=== PATIENT | male | born 1995 | race Caucasian/White ===

== ENCOUNTER 2019-06-18 17:44 | Emergency (ER) | payer OTHER, SELFPAY ==
[2019-06-18 17:45] VITALS: BP 90/49; PULSE 70; RESP 18; TEMP 36.1; O2SAT 98; BMI 35.9
[2019-06-18] MEDS: Diphth,Pertuss(Acell),Tet Vac 0.5 ML Vial IM (18:12)
[2019-06-18] MEDS: BACITRACIN 15 GM Tube 1 APPLIC TOPICAL (18:13)
[2019-06-18] MEDS: HYDROmorphone 1 MG/ML Syringe SC (18:13)
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
[2019-06-18 18:45] VITALS: BP 119/75; PULSE 81; RESP 16; O2SAT 99
--- NOTE | 2019-06-18 18:45 | ED.RN ---
THIS NURSE REVIEWED D/C INSTRUCTIONS WITH PT. PT VERBALIZED UNDERSTANDING OF INSTRUCTIONS. PT DENIES FURTHER NEEDS OR QUESTIONS AT THIS TIME. PT AMBULATES FROM ROOM ON OWN WITHOUT ASSISTANCE FROM STAFF
== END 2019-06-18 18:46 | disposition home or self-care (01) ==
LOC: ED 18:18
PROVIDERS: Emergency Provider Emergency Medicine; PCP Family Medicine
DX: T23.201A Burn of second degree of right hand, unspecified site, initial encounter (principal); X08.8XXA Exposure to other specified smoke, fire and flames, initial encounter; Y92.9 Unspecified place or not applicable; Y99.9 Unspecified external cause status; Z23 Encounter for immunization
CPT/HCPCS: 90471; 90715; 96372; 99283

== ENCOUNTER 2020-01-05 17:48 | Emergency (ER) | payer OTHER, SELFPAY ==
[2020-01-05 17:48] VITALS: BP 129/71; PULSE 88; RESP 16; TEMP 37.1; O2SAT 99; BMI 37.3
--- NOTE | 2020-01-05 19:06 | RAD_ITS ---
STUDY: X-RAY - LUMBAR SPINE REASON FOR EXAM: Male, 24 years old. Back pain for 3 days. No known injury. TECHNIQUE: 3 view(s) of the lumbar spine were obtained. COMPARISON: None FINDINGS: Normal lumbar lordosis. There is no substantial scoliosis. There is a normal alignment of the vertebrae. Normal vertebral bodies and endplates. Normal disc space heights. The soft tissue structures are unremarkable. RAD/Lumbar Spine 2 or 3 Views IMPRESSION: No fracture or subluxation. Electronically Signed: Bolivar Carter DO at 19:44 EDT Tel [phone], Service support ,
[2020-01-05] MEDS: Naproxen 500 MG Tablet PO (19:15)
--- NOTE | 2020-01-05 19:23 | ED.VISSUMM ---
- ER Visit Summary Date of Service: 01/05/20 Chief Complaint: Back pain History of Present Illness: The patient is a 24 M who presents with back pain that is being gradually getting worse over the last 4 days. Patient states the pain has been constant. Patient describes the pain is constant aching but sharp at times. Patient states the pain is over the lower lumbar area and radiates down both lower extremities. Patient admits to some tingling in his feet bilaterally. Patient states the pain is worse with sitting. Patient takes nothing seems to help with the pain. Patient denies any bowel or bladder changes. Patient denies any saddle anesthesia. Patient denies any direct trauma or injury. Patient states he went to a chiropractor a few days ago which initially helped. Patient states he went to the chiropractor again today and his pain became worse after that. Physical Examination: Vital signs are stable. Patient is afebrile. Patient is in no acute distress. Musculoskeletal exam reveals tenderness over the lower lumbar spine and paraspinal muscles bilaterally but worse on the right. There is no edema or ecchymosis. There is no bony crepitance or step-off. Range of motion was limited in all motions of the lumbar spine secondary to pain. Strength is 5/5 bilateral in the lower extremities. There are no sensory deficits noted. Deep tendon reflexes are 2+/4 bilateral in the lower extremities. Test Results: X-rays of the lumbar spine were obtained. There is no acute fracture or spondylolisthesis noted. These were interpreted by the radiologist and reviewed by myself. Emergency Department Course and Treatment: Patient was given a dose of Naprosyn and Flexeril here. Patient was given prescriptions for the same. Patient was instructed to use ice to the area. Patient was instructed to follow-up with his primary care physician in 5 to 7 days. Patient understood and was agreeable with the plan. All questions were answered. Disposition: Discharge home Impression: Lumbosacral strain This note was generated with [employer] dictation software. It may contain incorrect words, spelling, and punctuation that were not noted in review of the chart prior to signing ED Disposition - Plan for ED Patient: Disposition: Home or Assisted Living Diagnosis: Lumbosacral strain Instructions: ED LUMBAR SPRAIN/STRAIN Prescriptions: cycloBENZAPRine HCl [Flexeril] 10 mg PO QHS PRN PRN #20 tab PRN Reason: Muscle Spasm Prescription Printed Naproxen [Naprosyn] 500 mg PO BID PRN #20 tab Prescription Printed Referrals: Isiah Short MD [Primary Care Provider] - 3-5 Days
[2020-01-05] MEDS: cycloBENZAPRine HCl 10 MG Tablet PO (20:59)
[2020-01-05 21:00] VITALS: RESP 18
== END 2020-01-05 21:00 | disposition home or self-care (01) ==
PROVIDERS: Emergency Provider Emergency Medicine; PCP Family Medicine
DX: S39.012A Strain of muscle, fascia and tendon of lower back, initial encounter (principal); X58.XXXA Exposure to other specified factors, initial encounter; F17.220 Nicotine dependence, chewing tobacco, uncomplicated
CPT/HCPCS: 72100; 99283

== ENCOUNTER 2020-03-22 20:49 | Emergency (ER) | payer OTHER, SELFPAY ==
[2020-03-22 20:50] VITALS: BP 108/74; PULSE 72; RESP 18; TEMP 35.6; O2SAT 97; BMI 35.9
--- NOTE | 2020-04-13 08:53 | ED.VIS.GEN ---
History of Present Illness Chief Complaint: Foreign Body Informant: Patient Narrative: 24-year-old male presenting for foreign body sensation in his throat. This is a new issue for him. He states he has been able to tolerate his own secretions. He is able to eat and drink but does feel irritation. He does not have any shortness of breath or trouble breathing. No history of trauma. Past Medical History - Allergies and Home Meds Allergies/Adverse Reactions: Allergies No Known Allergies Allergy (Verified 03/22/20 20:51) Primary Care Physician: Isiah Short MD [Primary Care Provider] - Prior records reviewed: Yes Past Medical History: None Surgical History: noncontributory Lives: Spouse/ Significant Other Smoking Status: Former smoker Alcohol: None Drugs: None Review of Systems General: Denies: Chills, Fever, Sweats Eyes: Denies: Visual changes - bilaterally, Diplopia ENT: Reports: Sore throat - With foreign body sensation. Denies: Rhinorrhea Cardiovascular: Denies: Chest pain, Palpitations Respiratory: Denies: Dyspnea, Cough, Dyspnea on exertion Gastrointestinal: Denies: Abdominal pain, Nausea Genitourinary: Denies: Dysuria, Hematuria Musculoskeletal: Denies: Myalgias, Arthralgias Skin: Denies: Rash, Abscess Neurological: Denies: Headache, Parasthesia, Numbness Psych: Denies: Depression, Anxiety Physical Exam General: Well nourished, No Acute Distress Head: Normocephalic, Atraumatic Eyes: Perrl, EOMI ENT: Moist mucous membranes, - - Oropharynx is patent without stridor. [place] mucosa shows no abnormalities. Tongue and sublingual area are without swelling.. Negative for: Nasal congestion Cardiovascular: Regular rate, Regular rhythm Respiratory: No distress, CTA bilaterally Skin: Normal color, No rash. Negative for: Cyanosis, Diaphoresis Neurological: Alert, Oriented x3 Psychological: Normal affect, Normal Mood Diagnostic/Tx/Re-eval - Medical Decision Making 24-year-old male presenting with foreign body sensation in his esophagus. He is able to tolerate his own secretions and is able to tolerate fluids. His oropharynx is patent without stridor. There is no crepitance. Patient's vital signs are stable and he is afebrile. Given patient's ability to tolerate p.o. I do not believe he needs emergent endoscopy. Patient counseled on signs and symptoms to return. Impression: 1. Globus hystericus ED Disposition - Plan for ED Patient: Disposition: Home or Assisted Living Instructions: ED Esophageal Foreign Body, Resolved Referrals: Isiah Short MD [Primary Care Provider] -
== END 2020-03-22 21:42 | disposition home or self-care (01) ==
LOC: ED 21:38
PROVIDERS: Emergency Provider Student in an Organized Health Care Education/Training Program; PCP Family Medicine
DX: F45.8 Other somatoform disorders (principal); Z87.891 Personal history of nicotine dependence
CPT/HCPCS: 99282

== ENCOUNTER 2020-03-28 18:37 | Emergency (ER) | payer OTHER, SELFPAY ==
[2020-03-28 18:38] VITALS: BP 121/81; PULSE 81; RESP 17; TEMP 36.3; O2SAT 97; BMI 39.9
--- NOTE | 2020-03-28 19:02 | CT_ITS ---
STUDY: CT CHEST WITH CONTRAST REASON FOR EXAM: Male, 24 years old. CHEST PAIN,CHICKEN STUCK IN THROAT, DRANK WATER TO FORCE IT DOWN AND IS NOW COUGHING UP BLOOD RADIATION DOSAGE (If Supplied By Facility): CTDIvol = ( 20.05 ) mGy, DLP = ( 724.91 ) mGycm TECHNIQUE: Transaxial imaging was performed following intravenous administration of IV 100mL Isovue-370. Individualized dose optimization techniques were used for this CT. COMPARISON: Chest x-ray 07/26/2012. Esophagram 05/08/2010. FINDINGS: 9 mm luminal soft tissue density distal esophagus and local air-fluid level. The lungs are normal. There is no demonstrated pleural abnormality. Normal heart and pericardium. Normal mediastinum. Normal hilar regions. Normal enhanced pulmonary arteries. Normal aorta arch and descending thoracic aorta. Normal osseous structures. There is no demonstrated abnormality of the visualized upper abdomen. CT/Chest WITH Contrast IMPRESSION: Soft tissue density distal esophagus may represent a polyp or impacted food bolus. Otherwise negative CT chest. Electronically Signed: Girish Elliott MD at 20:05 EST , Service support ,
[2020-03-28] MEDS: Morphine 4 MG/ML Syringe IV ×2 (19:12→21:10)
[2020-03-28] MEDS: Ondansetron 4 MG/2 ML Vial IV (19:12)
[2020-03-28 19:19] LABS: Absolute Lymphocyte Count 4.57 X10^3/uL (0.83-4.51); Absolute Neutrophil Count 5.3 X10^3/uL (2.0-7.7); Basophil# 0.05 X10^3/uL; Basophil% 0.4 % (0-1); Eosinophil# 0.52 X10^3/uL; Eosinophils% 4.6 % (0-5); Hematocrit 47.1 % (40-54); Hemoglobin 15.1 g/dL (13.0-16.5); Lymphocyte # 4.57 X10^3/ul (4.0); Lymphocyte % 40.6 % (19-41); Mean Corp Hgb Conc 32.1 g/dL (32-36); Mean Corpuscular Hgb 28.2 pg (27.0-32.0); Mean Platelet Vol. 9.5 fl (6.2-12.0); Monocyte# 0.82 X10^3/uL; Monocyte% 7.3 % (0-10); NRBC Flagged by Analyzer 0 % (0-5); Platelet Count 304 K/mm3 (150-450); Red Blood Count 5.35 M/mm3 (4.6-6.2); White Blood Count 11.3 K/mm3 (4.4-11.0)
[2020-03-28 19:28] LABS: International Normalized Ratio 1.1; Prothrombin Time (Protime)PT. 13.5 SECONDS (11.7-14.9)
[2020-03-28 19:34] LABS: Anion Gap 5 (5-15); BUN 16 mg/dL (7-18); BUN/Creat Ratio 16.7 RATIO (10-20); Calcium,Total 8.9 mg/dL (8.5-10.1); Chloride 105 mmol/L (98-107); Creatinine, Serum 0.96 mg/dL (0.70-1.30); EST Glomerular Filtration Rate 101 mL/min (>60); Est Glom Filt Rate - Afr Amer 122 mL/min (>60); Glucose 88 mg/dL (74-106); Potassium 3.7 mmol/L (3.5-5.1); Sodium Level 141 mmol/L (136-145)
[2020-03-28 21:11] VITALS: BP 109/49; PULSE 65; RESP 20; O2SAT 97
--- NOTE | 2020-03-28 21:21 | ED.DCSUM_ITS ---
History of Present Illness Chief Complaint: Foreign Body Narrative: Patient is a 24-year-old male who presents with chest pain. He was eating chicken and felt a get stuck in his throat. He tried to forcefully drink some water to push it down. He then developed severe chest pain. He has been spitting up blood. He reports a similar sensation of having choked previously but it always resolved on its own. He otherwise denies any medical history. No shortness of breath. Past Medical History - Allergies and Home Meds Allergies/Adverse Reactions: Allergies No Known Allergies Allergy (Verified 03/28/20 18:38) Primary Care Physician: Isiah Short MD [Primary Care Provider] - Past Medical History: None Smoking Status: Former smoker Review of Systems All systems negative except as indicated General: Denies: Fever Eyes: Denies: Visual changes - bilaterally ENT: Denies: Bilateral ear pain Cardiovascular: Reports: Chest pain Respiratory: Denies: Dyspnea Gastrointestinal: Reports: Nausea. Denies: Abdominal pain, Vomiting Musculoskeletal: Denies: Myalgias, Arthralgias Skin: Denies: Rash Neurological: Denies: Headache Hematologic: Denies: Easy bruising Physical Exam Vital Signs/Narrative: Vital Signs Temp Pulse Resp BP Pulse Ox 03/28/20 21:11 65 20 H 109/49 L 97 03/28/20 18:38 97.3 F L 81 17 121/81 H 97 Inital Vital Signs reviewed: Yes General: Well nourished Head: Normocephalic Eyes: EOMI ENT: Moist mucous membranes Neck: Supple Cardiovascular: Regular rate, Regular rhythm Respiratory: No distress, CTA bilaterally Abdomen: Soft, Nontender, Nondistended Skin: Normal color Neurological: Alert Diagnostic/Tx/Re-eval - Medical Decision Making Patient was given IV morphine and IV Zofran. Given his presentation I was concerned for possible esophageal rupture. A CT of the chest was obtained. This shows no evidence of esophageal rupture. There is a density noted within the distal esophagus which could be a polyp versus a food impaction as well as air-fluid level above. I spoke to our general surgeon on-call, Dr. Schmidt. He is concerned regarding the bleeding for possible esophageal injury which she would not be able to manage here so recommended transfer. Multiple facilities were called and there is very limited bed availability. Ultimately the patient was accepted to the [facility]. Will be transferred to the emergency department for further care. ED Disposition - Plan for ED Patient: Disposition: [facility] Diagnosis: Esophageal obstruction due to food impaction, Hematemesis Referrals: Isiah Short MD [Primary Care Provider] -
[2020-03-28 22:34] VITALS: BP 112/74; PULSE 67; RESP 16; O2SAT 97
[2020-03-28] MEDS: fentaNYL 100 MCG/2 ML Ampul 50 MCG IV (22:42)
== END 2020-03-28 22:58 | disposition short-term general hospital (02) ==
PROVIDERS: Emergency Provider Emergency Medicine; PCP Family Medicine
DX: T18.128A Food in esophagus causing other injury, initial encounter (principal); K92.0 Hematemesis; Z87.891 Personal history of nicotine dependence
CPT/HCPCS: 71260; 80048; 85025; 85610; 87426; 96374; 96375; 96376; 99285; Q9967; A4216; J2405

== ENCOUNTER 2021-05-15 14:30 | Outpatient (CLI) | payer OTHER, SELFPAY ==
[2021-05-15 17:41] LABS: Absolute Lymphocyte Count 3.21 X10^3/uL (0.83-4.51); Absolute Neutrophil Count 4.9 X10^3/uL (2.0-7.7); Basophil# 0.07 X10^3/uL; Basophil% 0.7 % (0-1); Eosinophil# 0.53 X10^3/uL; Eosinophils% 5.6 % (0-5); Hemoglobin 15.7 g/dL (13.0-16.5); Lymphocyte # 3.21 X10^3/ul (0.83-4.51); Mean Corpuscular Hgb 28.8 pg (27.0-32.0); Mean Corpuscular Volume 89.9 fL (80-94); Mean Platelet Vol. 10.2 fl (6.2-12.0); Monocyte# 0.69 X10^3/uL; Monocyte% 7.3 % (0-10); NRBC Flagged by Analyzer 0 % (0-5); Neutrophil # 4.92 X10^3/uL (2.7-7.7); Neutrophil % 52.2 % (47-70); Platelet Count 316 K/mm3 (150-450); RBC Distribution Width CV 13.2 % (11.6-14.6); RBC Distribution Width SD 43.3 fl (35.1-43.9); Red Blood Count 5.45 M/mm3 (4.6-6.2); White Blood Count 9.4 K/mm3 (4.4-11.0)
[2021-05-15 18:03] LABS: AST(SGOT) 32 U/L (15-37); Alanine Aminotransfer ALT/SGPT 91 U/L (16-61); Albumin, Serum 3.8 g/dL (3.2-5.0); Alkaline Phosphatase 93 U/L (45-117); Anion Gap 4 (5-15); BUN 16 mg/dL (7-18); BUN/Creat Ratio 18.1 RATIO (10-20); Chloride 107 mmol/L (98-107); Creatinine, Serum 0.88 mg/dL (0.70-1.30); EST Glomerular Filtration Rate 110 mL/min (>60); Est Glom Filt Rate - Afr Amer 133 mL/min (>60); Glucose 71 mg/dL (74-106); Prolactin 7.1 ng/mL; Protein, Total 7.8 g/dL (6.4-8.2); Sodium Level 140 mmol/L (136-145); Thyroid Stim Hormone (TSH) 1.46 uIU/mL (0.358-3.74)
[2021-05-16 08:47] LABS: Vitamin B12 468 pg/mL (211-911); Vitamin D,25 Hydroxy 14.9 ng/mL
== END 2021-05-15 23:59 | disposition home or self-care (01) ==
LOC: MFPLAB 14:32
PROVIDERS: PCP Family Medicine; Referring Provider Family Medicine; Visit Provider Family Medicine
DX: R53.83 Other fatigue (principal)
CPT/HCPCS: 36415; 80053; 82306; 82607; 84146; 84403; 84443; 85025

== ENCOUNTER 2021-05-29 12:52 | Outpatient (CLI) | payer OTHER, SELFPAY ==
[2021-05-29 15:26] LABS: Amylase 46 U/L (25-115); Lipase 47 U/L (73-393)
== END 2021-05-29 23:59 | disposition home or self-care (01) ==
LOC: MTLAB 12:54
PROVIDERS: PCP Family Medicine; Referring Provider Registered Nurse; Visit Provider Registered Nurse
DX: R10.11 Right upper quadrant pain (principal); R79.89 Other specified abnormal findings of blood chemistry
CPT/HCPCS: 36415; 82150; 83690

== ENCOUNTER 2021-05-31 09:56 | Outpatient (CLI) | payer OTHER, SELFPAY ==
--- NOTE | 2021-05-31 10:04 | US_ITS ---
STUDY: ABDOMINAL ULTRASOUND - RIGHT UPPER QUADRANT REASON FOR VISIT: Male, 25 years old RUQ PAIN TECHNIQUE: Ultrasound evaluation of the right upper quadrant was performed with real-time and static samayoa-scale imaging. TECHNICAL QUALITY: Adequate. COMPARISON: Limited abdomen ultrasound from 02/04/2012. CT abdomen and pelvis without contrast from 01/24/2012. FINDINGS: Liver: The liver measures 15.4 and is within normal limits There is increased echogenicity consistent with fatty infiltration. The bile ducts are within normal limits. There is hepatic color flow. The direction of portal flow is hepatopetal. No masses. Gallbladder: Normal distended gallbladder. The gallbladder wall measures 1.8 mm. There is a negative sonographic Ureña''s sign. There is no pericholecystic fluid. There are no gallstones. Common Bile Duct (C.B.D.): The common bile duct measures 4.0 mm and is within normal limits. Pancreas: Visualized head is unremarkable. The majority of the pancreas is obscured by overlying bowel gas and difficult to assess. Right Kidney: Normal size of the right kidney. The right kidney measures 10.3 x 5.7 x 6.3 cm. Normal renal cortex. The right cortex measures 2.3 cm. There is no demonstrated renal mass or cyst. There is no right hydronephrosis. US/Abdomen Limited IMPRESSION: Hepatic steatosis. No hepatic masses. Electronically Signed: Margarito Scott, at 11:48 EDT ,
== END 2021-05-31 23:59 | disposition home or self-care (01) ==
PROVIDERS: PCP Family Medicine; Referring Provider Registered Nurse; Visit Provider Registered Nurse
DX: R10.11 Right upper quadrant pain (principal)
CPT/HCPCS: 76705